=== PATIENT | female | born 2000 | race African-American/Black ===

== ENCOUNTER 2020-12-02 07:41 | Emergency (ER) | payer OTHER ==
[2020-12-02 09:03] LABS: BILIRUBIN NEGATIVE (NEGATIVE); BLOOD 2+ Ery/uL (NEGATIVE); CLARITY CLEAR (CLEAR); COLOR YELLOW (YELLOW); GLUCOSE (U) NORMAL (NORMAL); LEUKOCYTES NEGATIVE Leu/uL (NEGATIVE); NITRITE NEGATIVE (NEGATIVE); PROTEIN NEGATIVE (NEGATIVE); SPECIFIC GRAVITY >=1.030 (1.001-1.030); UROBILINOGEN 0.2 mg/dL (0.2-1.0); pH 5.5 (5.0-9.0)
[2020-12-02 09:04] LABS: HCG (URINE) SCREEN NEGATIVE (NEGATIVE)
[2020-12-02 09:18] LABS: BASOPHIL 0.8 % (0-2); EOSINOPHIL 0.8 % (0-5); HCT 36.3 % (37.0-47.0); LYMPHOCYTE 36.6 % (15-48); MCH 28.4 pg (25.0-31.0); MCHC 33.1 g/dL (32.0-36.0); MONOCYTE 10.6 % (0-12); MPV 9.2 fL (6.0-9.5); NEUTROPHIL 50.9 % (41-80); NRBC 0; PLT 231 K/uL (150-400); RBC 4.22 M/uL (4.20-5.40); WBC 3.6 K/uL (4.0-10.5)
[2020-12-02 09:24] LABS: BACTERIA TRACE; URINARY RBC RARE
[2020-12-02 09:40] LABS: ALBUMIN 4.1 g/dL (3.4-5.0); BILIRUBIN - TOTAL 0.5 mg/dL (0.2-1.0); BUN/CREAT RATIO (CALC) 9.4 RATIO; CREATININE 0.64 mg/dL (0.51-0.95); GLOBULIN (CALCULATION) 3.8 g/dL; POTASSIUM 3.7 mmol/L (3.5-5.1); TOTAL PROTEIN 7.9 g/dL (6.4-8.2)
[2020-12-02] MEDS ORDERED: ROBAXIN750 MG PO (10:20)
[2020-12-02] MEDS ORDERED: NAPROXEN500 MG PO (10:20)
== END 2020-12-02 10:30 | disposition home or self-care (01) ==
LOC: FER 07:41
PROVIDERS: Emergency Medicine
DX: R10.9 Unspecified abdominal pain (principal)
CPT/HCPCS: 36415; 80053; 81001; 84145; 84703; 85025

== ENCOUNTER 2021-05-03 04:01 | Emergency (ER) | payer OTHER ==
[~2021-05-03 04:01] MED LIST: NAPROXEN500 MG PO; ROBAXIN750 MG PO
[2021-05-03] MEDS ORDERED: AUGMENTIN 875-1 EACH PO (04:50)
== END 2021-05-03 05:19 | disposition home or self-care (01) ==
LOC: FER 04:01
DX: J06.9 Acute upper respiratory infection, unspecified (principal); Z20.822 Contact with and (suspected) exposure to COVID-19
CPT/HCPCS: 99283; U0002

== ENCOUNTER 2021-07-03 18:11 | Emergency (ER) | payer OTHER ==
[~2021-07-03 18:11] MED LIST changes: +AUGMENTIN 875-1 EACH PO
[2021-07-03 21:24] LABS: HCT 39.9 % (37.0-47.0); HGB 13.5 g/dl (12.5-16.0); MCH 29.3 pg (25.0-31.0); MCHC 33.8 g/dL (32.0-36.0); MCV 86.7 fL (78.0-100.0); MPV 9.5 fL (6.0-9.5); RBC 4.6 M/uL (4.20-5.40); RDW 12.6 % (11.5-14.0); WBC 6.1 K/uL (4.0-10.5)
[2021-07-03 22:26] LABS: CREATININE 0.69 mg/dL (0.51-0.95); POTASSIUM 3.8 mmol/L (3.5-5.1)
== END 2021-07-03 22:38 | disposition home or self-care (01) ==
LOC: FER 18:11
PROVIDERS: Emergency Medicine
DX: U07.1 COVID-19 (principal)
CPT/HCPCS: 36415; 80048; 93005; J7030; U0002

== ENCOUNTER 2022-01-09 22:34 | Emergency (ER) | payer OTHER ==
[2022-01-09 23:34] LABS: BILIRUBIN NEGATIVE (NEGATIVE); BLOOD 1+ Ery/uL (NEGATIVE); CLARITY CLEAR (CLEAR); COLOR YELLOW (YELLOW); GLUCOSE (U) NORMAL (NORMAL); LEUKOCYTES NEGATIVE Leu/uL (NEGATIVE); NITRITE NEGATIVE (NEGATIVE); PROTEIN NEGATIVE (NEGATIVE); SPECIFIC GRAVITY >=1.030 (1.001-1.030); UROBILINOGEN 0.2 mg/dL (0.2-1.0)
[2022-01-10 00:10] LABS: CORONAVIRUS 2019 SARS-COV-2 NEGATIVE (NEGATIVE); INFLUENZA A NAA NEGATIVE (NEGATIVE)
[2022-01-10] MEDS ORDERED: METRONIDAZOLE250 MG PO (02:13)
[2022-01-10] MEDS ORDERED: KEFLEX250 MG PO (02:13)
[2022-01-12 06:08] LABS: CHLAMYDIA TRACHOMATIS, NAA Negative (Negative); NEISSERIA GONORRHOEAE, NAA Negative (Negative)
== END 2022-01-10 02:46 | disposition home or self-care (01) ==
LOC: FER 22:34
PROVIDERS: Emergency Medicine
DX: R42 Dizziness and giddiness (principal); N39.0 Urinary tract infection, site not specified; Z20.822 Contact with and (suspected) exposure to COVID-19; Z28.310 Unvaccinated for COVID-19
CPT/HCPCS: 81001; 87088; 87210; 87491; 87591; 99284; U0002